=== PATIENT | female | born 1985 | race African-American/Black ===

== ENCOUNTER → 2016-12-31 | Outpatient (CLI) | payer OTHER ==
[2016-08-07 17:48] VITALS: BP 124/69
[2016-12-31 17:16] LABS: BASOPHILS # (AUTO) 0.1 X10^3/uL (0.0-0.1); BASOPHILS % (AUTO) 0.7 % (0.2-1.0); EOSINOPHILS # (AUTO) 0.1 x10^3/uL (0.0-0.2); EOSINOPHILS % (AUTO) 0.7 % (0.9-2.9); HEMATOCRIT 36.2 % (36.0-47.0); HEMOGLOBIN 11.6 g/dL (12.0-16.0); LYMPHOCYTES # (AUTO) 3.4 X10^3/uL (1.3-2.9); MEAN CORPUSCULAR VOLUME 81.3 fL (80.0-100.0); MEAN PLATELET VOLUME 7.6 fL (7.4-11.0); MONOCYTES # (AUTO) 0.7 x10^3/uL (0.3-0.8); MONOCYTES % (AUTO) 5.6 % (0.0-13.0); PLATELET COUNT 423 X10^3/uL (150.0-450.0); RED BLOOD COUNT 4.45 X10^6/uL (3.5-5.4); RED CELL DISTRIBUTION WIDTH 18.2 % (11.6-16.5); WHITE BLOOD COUNT 12.2 X10^3/uL (3.6-10.0)
== END ==
LOC: LAB 16:38
PROVIDERS: ATTEND Internal Medicine Gastroenterology
DX: R11.2 Nausea with vomiting, unspecified (principal)
CPT/HCPCS: 36415; 85025

== ENCOUNTER 2017-02-17 22:18 | Emergency (ER) | payer OTHER ==
[2017-02-17 22:47] VITALS: BP 117/67; BMI 35.2
--- NOTE | 2017-02-17 22:53 | DR.GENAD ---
HPI - PCP Primary Care Physician: ADELSO JOLLY - HPI Comment HPI Comment: PERSISTENT PAIN. TOOK MOTRIN WHICH HELP PAIN. DIFFICULLTY BEARING WEIGHT. - Complaint/Symptoms Chief Complaint Doctors Comments: LEFT FOOT PAIN, DROP CHAIR ON IT THIS AFTERNOON. Chief Complaint:: PT STATES, "I DROPPED A CHAIR ON MY LEFT FOOT." Self Treatment fo Chief Complaint: MOTRIN - Nurses notes reviewed Nurses Notes Review: Yes - Source History Provided: Patient - Mode of Arrival Mode of Arrival: Wheelchair - Timing Onset of Chief Complaint: 02/17/17 Came on: Suddenly - Duration Duration: Constant Duration: Hours - Severity Severity: Moderate PMH - PMH Past Medical History: No Past Medical History: Diabetes Past Surgical History: Yes Surgical History: Appendectomy - Family History History of Family Medical Conditions: Yes Family Medical History: Cancer, Hypertension - Social History Alcohol Use: None Do you use any recreational Drugs:: No Lives With: Alone Lives Where: Home - infectious screening In the last 2 months have you had wt loss of >10#?: NO Have you had fever, night sweats or hemotysis?: No Have you traveled outside the country in the last 6 months?: No Isolation: Standard ROS - Review of Systems Constitutional: No Symptoms Reported Eyes: No Symptoms Reported ENTM: No Symptoms Reported Respiratoy: No Symptoms Reported Cardiovascular: No Symptoms Reported Gastrointestinal/Abdominal: No Symptoms Reported Genitourinary: No Symptoms Reported Neurological: No Symptoms Reported Musculoskeletal: Muscle Pain, Left, Ankle, Foot Integumentary: No Symptoms Reported Hematologic/Lymphatic: No Symptoms Reported Endocrine: No Symptoms Reported All Other Systems: Reviewed and Negative PE - Vital Signs Vitals: Temperature 97.9 F Pulse Rate 66 Respiratory Rate 20 Blood Pressure 117/67 O2 Sat by Pulse Oximetry 100 - General Limitations: No Limitations General Appearance: Alert - Head Head Exam: Normal Inspection - Eyes Eye exam: Normal Appearance - ENT ENT Exam: Normal External Ear Exam External Ear Exam: Normal External Inspection Nose Exam: Normal Nose Exam Mouth Exam: Normal Inspection Throat Exam: Normal Inspection - Neck Neck Exam: Trachea Midline - Chest Chest Inspection: Symmetric Chest Wall Rise - Respiratory Respiratory Exam: Normal Lung Sounds Bilat Respiratory Exam: Bilateral Clear to Auscultation - Cardiovascular Cardiovascular Exam: Regular Rate, Normal Rhythm, Normal Heart Sounds - Abdominal Exam Abdominal Exam: Normal Bowel Sounds, Soft. negative: Tenderness - Extremities Extremities Exam: Tenderness (LEFT FOOT AND ANKLE PAIN AND TENDERNESS.) - Back Back Exam: Normal Inspection - Neurologic Neurological Exam: Alert, Oriented X3 - Psychiatric Psychiatric Exam: Normal Affect, Normal Mood - Skin Skin Exam: Erythema (LT FOOT SLIGHT BRUISING.) MDM - Differential Diagnosis Differential Diagnosis: LT FOOT AND ANKLE SPRAIN, FRACTURE, CONTUSION Course - Treatment Treatment: SEE ORDERS - Education/Counseling Education/Counseling: Patient, Education Educated On: Diagnosis, Needs for Follow Up ROR - XRAY XRAY Findings: REPORT DISCUSS WITH PATIENT. - Diagnosis Discharge Problem: Contusion of left foot Qualifiers: Encounter type: initial encounter Qualified Code(s): S90.32XA - Contusion of left foot, initial encounter - Discharge Plan Disposition: HOME, SELF-CARE Condition: Stable Prescriptions: Ibuprofen [Motrin Tab 800 mg] 800 mg PO BID PRN #20 tab PRN Reason: Pain/Inflammation Tramadol HCl 50 mg PO Q8H PRN #12 tab PRN Reason: Pain - Follow ups/Referrals Follow ups/Referrals: NFD,None [Primary Care Provider] - 2 days ISAIAS CARLOS [STAFF PHYSICIAN] - 2 days - Instructions Instructions: Foot Contusion Additional Instructions: RETURN TO ED IF WORSE.
--- NOTE | 2017-02-17 23:33 | RAD ---
EXAM: Left foot x-ray INDICATION: Pain COMPARISION: None TECHNIQUE: AP, lateral, and oblique, three views FINDINGS: No acute fracture or dislocation. The joint spaces are preserved. The soft tissues are normal. No ra diopaque foreign body. IMPRESSION: Normal left foot x-ray exam Reported By:
[2017-02-17] MEDS ORDERED: ULTRAM PO ONE (23:42)
[2017-02-17] MEDS ORDERED: ULTRAM ONE (23:43)
== END 2017-02-18 00:06 | disposition home or self-care (01) ==
LOC: ER 22:18
DX: S90.32XA Contusion of left foot, initial encounter (principal); X58.XXXA Exposure to other specified factors, initial encounter; Y92.9 Unspecified place or not applicable
CPT/HCPCS: 73630; 99282

== ENCOUNTER 2017-04-15 23:39 | Emergency (ER) | payer OTHER ==
[2017-04-15 23:48] VITALS: BP 104/69; BMI 35.6
[2017-04-16] MEDS ORDERED: TORADOL 60 MG VIAL IM ONE (00:21)
[2017-04-16] MEDS ORDERED: TORADOL 60 MG VIAL ONE (00:23)
--- NOTE | 2017-04-16 00:48 | DR.GENAD ---
HPI - PCP Primary Care Physician: [facility] - HPI Comment HPI Comment: PAIN GETTING WORSE. PENDING CONSULT WITH [employer] C[employer]URIST, FOOT IS SWOLLEN. - Complaint/Symptoms Chief Complaint Doctors Comments: PAIN LEFT FOOT TIMES SEVERAL WEEKS. XRAY IN FEBRUARY WAS NEGATIVE.SORE THROAT TIMES 2 DAYS. FEVER YESTERDAY, Chief Complaint:: LEFT FOOT PAIN, SWELLING FOR SOME TIME, NOTHING IS HELPING. THROAT SORE, COUGHING UP MUCOUS FOR 2 DAYS. Self Treatment fo Chief Complaint: TRAMADOL, COUGH DROPS, THROAT SPRAY - Nurses notes reviewed Nurses Notes Review: Yes - Source History Provided: Patient - Mode of Arrival Mode of Arrival: Ambulatory - Timing Onset of Chief Complaint: 04/12/17 Came on: Suddenly, Gradually - Duration Duration: Constant Duration: Days PMH - PMH Past Medical History: Yes Past Medical History: Diabetes Past Surgical History: Yes Surgical History: Appendectomy - Family History History of Family Medical Conditions: Yes Family Medical History: Cancer, Hypertension - Social History Does patient currently use any type of tobacco product: No Have you used tobacco products in the last 12 months: No Type of Tobacco Use: None Alcohol Use: None Do you use any recreational Drugs:: No Lives With: Family Lives Where: Home - infectious screening Have you traveled outside the country in the last 6 months?: No Isolation: Standard ROS - Review of Systems Constitutional: No Symptoms Reported Eyes: No Symptoms Reported ENTM: Throat Pain. negative: Ear Pain, Nose Discharge, Nose Congestion Respiratoy: No Symptoms Reported Cardiovascular: No Symptoms Reported Gastrointestinal/Abdominal: No Symptoms Reported Genitourinary: No Symptoms Reported Neurological: No Symptoms Reported Musculoskeletal: Left, Foot Integumentary: No Symptoms Reported Hematologic/Lymphatic: No Symptoms Reported Endocrine: No Symptoms Reported All Other Systems: Reviewed and Negative PE - Vital Signs Vitals: Temperature 98.1 F Pulse Rate 70 Respiratory Rate 16 Blood Pressure 104/69 O2 Sat by Pulse Oximetry 99 - General Limitations: No Limitations General Appearance: Alert - Head Head Exam: Normal Inspection - Eyes Eye exam: Normal Appearance - ENT ENT Exam: Normal External Ear Exam External Ear Exam: Normal External Inspection TM/Canal Exam: Bilateral Normal Nose Exam: Normal Nose Exam Mouth Exam: Normal Inspection Throat Exam: Tonsillar Erythema. negative: Tonsillomegaly, Tonsillar Exudate - Neck Neck Exam: Trachea Midline. negative: Tenderness, Meningismus, Lymphadenopathy - Chest Chest Inspection: Symmetric Chest Wall Rise - Respiratory Respiratory Exam: Normal Lung Sounds Bilat Respiratory Exam: Bilateral Clear to Auscultation - Cardiovascular Cardiovascular Exam: Regular Rate, Normal Rhythm, Normal Heart Sounds - Abdominal Exam Abdominal Exam: Normal Bowel Sounds, Soft. negative: Tenderness - Extremities Extremities Exam: Tenderness (SWELLING AND TENDERNESS LEFT FOOT.) - Back Back Exam: Normal Inspection - Neurologic Neurological Exam: Alert, Oriented X3 - Psychiatric Psychiatric Exam: Normal Affect, Normal Mood - Skin Skin Exam: Normal Color [facility] - Additional Information Additional Information Obtained From: Family - Differential Diagnosis Differential Diagnosis: LEFT FOOT PAIN, STREP THROAT/PHARYNGITIS Course - Treatment Treatment: SEE ORDERS. - Reevaluation 1st: Improved - Education/Counseling Education/Counseling: Patient, Education Educated On: Treatment, Diagnosis, Needs for Follow Up ROR - Labs Reviewed Laboratory Results Reviewed?: Yes Laboratory: Streptococcus Screen Negative (NEGATIVE) 04/16/17 00:19 - Diagnosis Discharge Problem: Foot pain, Sore throat - Discharge Plan Condition: Stable Prescriptions: Amoxicillin [Amoxil 875 mg] 875 mg PO TID #30 tab Ibuprofen [Motrin Tab 800 mg] 800 mg PO BID PRN #20 tab PRN Reason: Pain/Inflammation - Follow ups/Referrals Follow ups/Referrals: NFD,None [Primary Care Provider] - 3 days ISAIAS CARLOS [STAFF PHYSICIAN] - 3 days - Instructions Instructions: Sore Throat, [id number], Tendinitis, [id number] Additional Instructions: RETURN TO ED IF WORSE.
== END 2017-04-16 01:00 | disposition home or self-care (01) ==
LOC: ER 23:53
DX: J02.9 Acute pharyngitis, unspecified (principal); M79.672 Pain in left foot
CPT/HCPCS: 87070; 87880; 96372; 99282; J1885

== ENCOUNTER → 2017-07-11 | Outpatient (CLI) | payer OTHER ==
[2017-07-15 06:43] LABS: HCV VIRAL LOG <1.2 log IU
== END ==
LOC: LAB 09:06
PROVIDERS: ATTEND Internal Medicine Gastroenterology
DX: R76.8 Other specified abnormal immunological findings in serum (principal)
CPT/HCPCS: 36415; 87522; 87902

== ENCOUNTER 2017-07-17 06:53 | Emergency (ER) | payer OTHER ==
[2017-07-17 07:01] VITALS: BP 122/69; BMI 36.0
[2017-07-17] MEDS ORDERED: TORADOL 60 MG VIAL ONE (07:17)
[2017-07-17] MEDS ORDERED: TORADOL 60 MG VIAL IM ONE (07:17)
--- NOTE | 2017-07-17 07:17 | DR.GENAD ---
HPI - PCP Primary Care Physician: nfd - Complaint/Symptoms Chief Complaint Doctors Comments: Patient states that she was dismantling a trampoline on yesterday and some how injured her right shoulder. This morning admits to right shoulder pain. Pain is moderate, sharp, worse with abduction and internal rotation. Chief Complaint:: pt states" i must have pulled a muscle in my rt arm and shoulder yesterday at work cause i can barely lift it today" - Source History Provided: Patient - Mode of Arrival Mode of Arrival: Ambulatory - Timing Onset of Chief Complaint: 07/16/17 PMH - PMH Past Medical History: No Past Medical History: Diabetes Past Surgical History: Yes Surgical History: Appendectomy - Family History History of Family Medical Conditions: Yes Family Medical History: Cancer, Hypertension - Social History Alcohol Use: None Do you use any recreational Drugs:: No Lives With: Family Lives Where: Home - infectious screening In the last 2 months have you had wt loss of >10#?: NO Have you had fever, night sweats or hemotysis?: No Have you traveled outside the country in the last 6 months?: No Isolation: Standard ROS - Review of Systems Eyes: No Symptoms Reported ENTM: No Symptoms Reported Respiratoy: No Symptoms Reported Cardiovascular: No Symptoms Reported Gastrointestinal/Abdominal: No Symptoms Reported Genitourinary: No Symptoms Reported Neurological: Other (right shoulder pain) Musculoskeletal: No Symptoms Reported Integumentary: No Symptoms Reported Hematologic/Lymphatic: No Symptoms Reported Endocrine: No Symptoms Reported Psychiatric: No Symptoms Reported All Other Systems: Reviewed and Negative PE - Vital Signs Vitals: Temperature 986 F Pulse Rate 82 Respiratory Rate 18 Blood Pressure 122/69 O2 Sat by Pulse Oximetry 100 - General Limitations: No Limitations General Appearance: Alert - Head Head Exam: Normal Inspection - Eyes Eye exam: Normal Appearance, EOMI - ENT ENT Exam: Normal Exam External Ear Exam: Normal External Inspection TM/Canal Exam: Bilateral Normal Nose Exam: Normal Nose Exam Mouth Exam: Normal Inspection Throat Exam: Normal Inspection - Neck Neck Exam: Normal Inspection - Chest Chest Inspection: Normal Inspection - Respiratory Respiratory Exam: Normal Lung Sounds Bilat Respiratory Exam: Bilateral Clear to Auscultation - Cardiovascular Cardiovascular Exam: Regular Rate - Abdominal Exam Abdominal Exam: Normal Inspection Abdominal Tenderness: negative: RUQ, RLQ, LUQ, LLQ, Epigastrium, Suprapubic, Diffuse, Mild, Moderate, Severe, Other - Extremities Extremities Exam: Other (decreased ROM to internal rotation,abduction against resistance) - Back Back Exam: Normal Inspection - Neurologic Neurological Exam: Alert, Oriented X3, CN II-XII Intact - Psychiatric Psychiatric Exam: Normal Affect - Skin Skin Exam: Warm, Dry, Intact - Diagnosis Discharge Problem: Sprain of shoulder, right Qualifiers: Encounter type: initial encounter Shoulder sprain type: unspecified sprain Qualified Code(s): S43.401A - Unspecified sprain of right shoulder joint, initial encounter - Discharge Plan Condition: Stable - Follow ups/Referrals Follow ups/Referrals: NFD,None [Primary Care Provider] - 3 days - Instructions
== END 2017-07-17 07:35 | disposition home or self-care (01) ==
LOC: ER 06:53
DX: S43.401A Unspecified sprain of right shoulder joint, initial encounter (principal); Y33.XXXA Other specified events, undetermined intent, initial encounter; Y92.9 Unspecified place or not applicable
CPT/HCPCS: 96372; 99282; J1885

== ENCOUNTER → 2017-07-22 | Outpatient (CLI) | payer OTHER ==
--- NOTE | 2017-07-22 10:31 | US ---
History: Hepatitis C Study: Ultrasound of the liver and right upper quadrant of the abdomen Comparison: None Findings: The liver is normal in size without mass with normal echogenicity. There is appropriate rusty w in the hepatic and portal veins. The gallbladder is normal in size without wall thickening or stone or sludge. The common hepatic duct measures 4.2 mm diameter. The right kidney measures 10 x 5.4 x 5.5 cm without mass or hydronephrosis. The visualized pancreas is unremarkable. There is no free fluid. Impression: Negative Reported By:
== END ==
LOC: RAD 09:00
PROVIDERS: ATTEND Internal Medicine Gastroenterology
DX: R76.8 Other specified abnormal immunological findings in serum (principal)
CPT/HCPCS: 76705

== ENCOUNTER 2017-09-04 13:30 | Emergency (ER) | payer OTHER ==
[2017-09-04 13:44] VITALS: BP 137/73; BMI 35.0
[2017-09-04] MEDS ORDERED: DECADRON INJ IM ONE (15:05)
--- NOTE | 2017-09-04 15:05 | DR.GENAD ---
HPI - PCP Primary Care Physician: TALYA SINGH - Complaint/Symptoms Chief Complaint:: PT C/O HER LEFT FOOT BOTHERING HER AND SHE DENIES ANY INJURY PT C/O SWELLING.. SWELLING NOTED .. SMALL BRUISE NOTED TO LATERAL LEFT FOOT". Self Treatment fo Chief Complaint: NEURONTIN, PREDNISONE. ,, PT GIVEN LASIX AND REFERRED TO FOOT MD AND SHE CANT BE SEEN TILL JANRUARY PT STATES SHE CANT HANDLE THE PAIN ANY MORE . - Source History Provided: Patient - Mode of Arrival Mode of Arrival: Ambulatory - Timing Onset of Chief Complaint: 09/01/17 PMH - PMH Past Medical History: No Past Medical History: Diabetes Past Surgical History: Yes Surgical History: Appendectomy Past Surgical History Comment: CYST FROM WRISTS .. - Family History History of Family Medical Conditions: Yes Family Medical History: Cancer, Hypertension - Social History Does patient currently use any type of tobacco product: No Have you used tobacco products in the last 12 months: No Type of Tobacco Use: None Does any household member use tobacco: No Alcohol Use: None Do you use any recreational Drugs:: No Lives With: Family Lives Where: Home - infectious screening In the last 2 months have you had wt loss of >10#?: NO Have you had fever, night sweats or hemotysis?: No Have you traveled outside the country in the last 6 months?: No Isolation: Standard ROS - Review of Systems Constitutional: No Symptoms Reported Eyes: No Symptoms Reported ENTM: No Symptoms Reported Respiratoy: No Symptoms Reported Cardiovascular: No Symptoms Reported Gastrointestinal/Abdominal: No Symptoms Reported Genitourinary: No Symptoms Reported Neurological: No Symptoms Reported Musculoskeletal: Foot (chronic left foot pain) Integumentary: No Symptoms Reported Hematologic/Lymphatic: No Symptoms Reported Endocrine: No Symptoms Reported Psychiatric: No Symptoms Reported All Other Systems: Reviewed and Negative PE - Vital Signs Vitals: Temperature 98.2 F Pulse Rate 80 Respiratory Rate 20 Blood Pressure 137/73 O2 Sat by Pulse Oximetry 95 - General Limitations: No Limitations General Appearance: Alert, In No Apparent Distress - Head Head Exam: Normal Inspection, Atraumatic - Eyes Eye exam: Normal Appearance, PERRL, EOMI - ENT ENT Exam: Normal Exam External Ear Exam: Normal External Inspection TM/Canal Exam: Bilateral Normal Nose Exam: Normal Nose Exam Mouth Exam: Normal Inspection Throat Exam: Normal Inspection - Neck Neck Exam: Normal Inspection - Chest Chest Inspection: Normal Inspection - Respiratory Respiratory Exam: Normal Lung Sounds Bilat Respiratory Exam: Bilateral Clear to Auscultation - Cardiovascular Cardiovascular Exam: Regular Rate - Abdominal Exam Abdominal Exam: Normal Inspection Abdominal Tenderness: negative: RUQ, RLQ, LUQ, LLQ, Epigastrium, Suprapubic, Diffuse, Mild, Moderate, Severe, Other - Extremities Extremities Exam: Normal Inspection, Full ROM, Other (left foot pain) - Back Back Exam: Normal Inspection, Full ROM - Neurologic Neurological Exam: Alert, Oriented X3, CN II-XII Intact - Psychiatric Psychiatric Exam: Normal Affect - Skin Skin Exam: Warm, Dry, Intact - Diagnosis Discharge Problem: Pain, foot, left, chronic - Discharge Plan Condition: Stable - Follow ups/Referrals Follow ups/Referrals: NFD,None [Primary Care Provider] - 3 days - Instructions
[2017-09-04] MEDS ORDERED: DECADRON INJ ONE (15:10)
== END 2017-09-04 15:37 | disposition home or self-care (01) ==
LOC: ER 13:41
DX: M79.672 Pain in left foot (principal)
CPT/HCPCS: 96372; 99282; J1100

== ENCOUNTER 2017-11-12 14:59 | Emergency (ER) | payer OTHER ==
[2017-11-12 15:03] VITALS: BP 181/109; BMI 37.5
[2017-11-12] MEDS ORDERED: ADACEL TDaP IM ONE ×2 (15:23→15:27)
--- NOTE | 2017-11-12 15:52 | DR.LACERAT ---
HPI - Time Seen Time seen: 15:30 - Primary Care Physician Primary Care Physician: ADELSO SINGH - HPI Comment HPI Comment: BROOM HANDLE BROKE WHILE USING IT AND CUT LT MIDDLE FINGER. 2CM LAC PRESENT. - Complaints Chief Complaint Doctors Comments: LACERATION LEFT MIDDLE FINGER. Chief Complaint:: PT C/O CUTTING HER LEFT HAND ON A IRON BROOM,, PT HAS LACERATION TO HER LEFT MIDDLE FINGER ABOUT 2 CM WITH TISSUE HANGING OUT,, - Reviewed Nurses Notes Reviewed: Yes - Source History Provided: Patient - Mode of Arrival Mode of Arrival: Ambulatory - Timing Onset of Chief Complaint: 11/12/17 - Context Mechanism: Metal Tetanus Vaccination: No - Severity Pain Severity: Moderate Bleeding:: Controlled - Associated Signs and Symptoms Associated Signs and Symptoms: None PMH - PMH Past Medical History: Yes Past Medical History: Diabetes Past Surgical History: Yes Surgical History: Appendectomy Past Surgical History Comment: GANGLION CYST, RIGHT HAND SURGERY , - Family History History of Family Medical Conditions: Yes Family Medical History: Cancer, Hypertension - Social History Does patient currently use any type of tobacco product: No Have you used tobacco products in the last 12 months: No Type of Tobacco Use: None Does any household member use tobacco: No Alcohol Use: None Do you use any recreational Drugs:: No Lives With: Family Lives Where: Home - infectious screening In the last 2 months have you had wt loss of >10#?: NO Have you had fever, night sweats or hemotysis?: No Have you traveled outside the country in the last 6 months?: No Isolation: Standard ROS - Review of Systems Constitutional: No Symptoms Reported Eyes: No Symptoms Reported ENTM: No Symptoms Reported Respiratoy: No Symptoms Reported Cardiovascular: No Symptoms Reported Gastrointestinal/Abdominal: No Symptoms Reported Genitourinary: No Symptoms Reported Neurological: No Symptoms Reported Musculoskeletal: Left, Hand Integumentary: Other (2CM LAC LEFT MIDDLE FINGER.) Hematologic/Lymphatic: No Symptoms Reported Endocrine: No Symptoms Reported All Other Systems: Reviewed and Negative PE - Vital Signs Vitals: Temperature 98.2 F Pulse Rate 77 Respiratory Rate 20 Blood Pressure 181/109 O2 Sat by Pulse Oximetry 99 - General Limitations: No Limitations General Appearance: Alert - Head Head Exam: Normal Inspection - Eyes Eye exam: Normal Appearance - ENT ENT Exam: Normal External Ear Exam - Neck Neck Exam: Normal Inspection - Chest Chest Inspection: Symmetric Chest Wall Rise - Respiratory Respiratory Exam: Normal Lung Sounds Bilat Respiratory Exam: Bilateral Clear to Auscultation - Cardiovascular Cardiovascular Exam: Regular Rate, Normal Rhythm, Normal Heart Sounds - Abdominal Exam Abdominal Exam: Normal Bowel Sounds, Soft. negative: Tenderness - Extremities Extremities Exam: Tenderness (2CM LAC LT MIDDLE FINGER.) - Back Back Exam: Normal Inspection - Neurologic Neurological Exam: Alert, Oriented X3 - Psychiatric Psychiatric Exam: Normal Affect, Normal Mood - Skin Skin Exam: Erythema, Other (2CM LAC IN LT MIDDLE FINGER.) MDM - Differential Diagnosis Differential Diagnosis: Laceration Course - Treatment Treatment: SEE ORDERS. - Education/Counseling Education/Counseling: Patient, Education Educated On: Diagnosis, Needs for Follow Up Procedures - Laceration/Wound Repair Left Finger Wound Length (cm): 2 Wound's Depth, Shape: Linear Wound Explored: clean Betadine Prep?: Yes Anesthesia: 1% Lidocaine Volume Anesthetic (ccs): 2 Wound Debrided: minimal Wound Repaired With: sutures Suture Size/Type: 5:0, Ethilion Number of Sutures: 4 Layer Closure?: No Sterile Dressing Applied?: Yes Splint Applied?: No Sling Applied?: No - Diagnosis Discharge Problem: Laceration Laceration of left middle finger Qualifiers: Encounter type: initial encounter Damage to nail status: without damage Foreign body presence: without foreign body Qualified Code(s): S61.213A - Laceration without foreign body of left middle finger without damage to nail, initial encounter - Discharge Plan Disposition: 01 HOME, SELF-CARE Condition: Stable Prescriptions: Cephalexin [KEFLEX CAP 500 MG *] 500 mg PO TID #21 cap Ibuprofen [MOTRIN TAB 800 MG *] 800 mg PO Q8H PRN #20 tab PRN Reason: Pain/Inflammation - Follow ups/Referrals Follow ups/Referrals: DONNY DARDEN [Primary Care Provider] - 3 days - Instructions Instructions: Laceration Care, Adult, [id number] Additional Instructions: RETURN TO ED IF WORSE. SUTURE OUT IN 10 DAYS.
[2017-11-12] MEDS ORDERED: NEOSPORIN OINT TOP ONE (16:02)
[2017-11-12] MEDS ORDERED: BACITRACIN ZINC ONE (16:09)
== END 2017-11-12 16:17 | disposition home or self-care (01) ==
LOC: ER 15:08
PROC: 0XQRXZZ Repair Left Middle Finger, External Approach (ICD-10-PCS; principal; 2017-11-12)
DX: S61.213A Laceration without foreign body of left middle finger without damage to nail, initial encounter (principal); W45.8XXA Other foreign body or object entering through skin, initial encounter; Y92.9 Unspecified place or not applicable
CPT/HCPCS: 90471; 99282

== ENCOUNTER → 2017-11-20 | Outpatient (CLI) | payer OTHER ==
[2017-11-12 15:03] VITALS: BP 181/109
[2017-11-20 08:46] LABS: BASOPHILS # (AUTO) 0.1 X10^3/uL (0.0-0.1); EOSINOPHILS # (AUTO) 0.1 x10^3/uL (0.0-0.2); EOSINOPHILS % (AUTO) 1.7 % (0.9-2.9); HEMATOCRIT 31.8 % (36.0-47.0); HEMOGLOBIN 10.1 g/dL (12.0-16.0); LYMPHOCYTES # (AUTO) 2.8 X10^3/uL (1.3-2.9); LYMPHOCYTES % (AUTO) 35.5 % (21.0-51.0); MEAN CORPUSCULAR HEMOGLOBIN 24.6 pg (27.0-34.0); MEAN CORPUSCULAR HGB CONC 31.7 g/dL (33.0-35.0); MEAN CORPUSCULAR VOLUME 77.5 fL (80.0-100.0); MEAN PLATELET VOLUME 7.5 fL (7.4-11.0); MONOCYTES # (AUTO) 0.7 x10^3/uL (0.3-0.8); MONOCYTES % (AUTO) 9.1 % (0.0-13.0); NEUTROPHILS # (AUTO) 4.1 x10^3/uL (2.2-4.8); NEUTROPHILS % (AUTO) 52.7 % (42.0-75.0); PLATELET COUNT 534 X10^3/uL (150.0-450.0); RED BLOOD COUNT 4.11 X10^6/uL (3.5-5.4); WHITE BLOOD COUNT 7.9 X10^3/uL (3.6-10.0)
[2017-11-20 08:55] LABS: ALANINE AMINOTRANSFERASE 24 Units/L (12-78); ALBUMIN 3.1 g/dL (3.4-5.0); ALKALINE PHOSPHATASE 149 Units/L (46-116); ASPARTATE AMINO TRANSFERASE 20 Units/L (15-37); BLOOD UREA NITROGEN 12 mg/dL (7-18); CALCIUM 8.5 mg/dL (8.5-10.1); CARBON DIOXIDE 28.5 mmol/L (21-32); CHLORIDE 105 mmol/L (98-107); COR CA(FOR HYPOALB) 9.2 mg/dL (8.5-10.1); CREATININE 0.95 mg/dL (0.55-1.02); SODIUM 140 mmol/L (136-145); TOTAL PROTEIN 7.9 g/dL (6.4-8.2); eGFR BLACK RACES > 60 (>60); eGFR NON BLACK RACES > 60 (>60)
[2017-11-20 09:48] LABS: PLATELET MORPHOLOGY COMMENT NORMAL (NORMAL)
[2017-11-22 13:32] LABS: HCV VIRAL LOG <1.2 log IU
== END ==
LOC: LAB 11-19 15:24
PROVIDERS: ATTEND Internal Medicine Gastroenterology
DX: B18.2 Chronic viral hepatitis C (principal)
CPT/HCPCS: 36415; 80053; 81599; 85025; 87522; 87902

== ENCOUNTER 2017-11-30 22:55 | Emergency (ER) | payer OTHER ==
[2017-11-30 23:01] VITALS: BP 125/58; BMI 36.0
--- NOTE | 2017-11-30 23:38 | DR.GENAD ---
HPI - PCP Primary Care Physician: DIEGO - Complaint/Symptoms Chief Complaint Doctors Comments: Sore throat x 3 days. NO fever or chills associated. Secondly, she has sutures that were placed over a laceration on the 3rd finger, lt. hand on 11/12/17 that she would like to have taken out. She states that she was instructed to have this on by day 13. Chief Complaint:: THROAT ACHING, LEFT HURTS AND STITCHES IN LEFT FINGER NEEDS REMOVIN - Source History Provided: Patient - Mode of Arrival Mode of Arrival: Ambulatory - Timing Onset of Chief Complaint: 11/25/17 PMH - PMH Past Medical History: No Past Medical History: Diabetes Past Surgical History: Yes Surgical History: Appendectomy, Ortho Surgery - Family History History of Family Medical Conditions: Yes Family Medical History: Hypertension - Social History Does any household member use tobacco: No Alcohol Use: Rarely Do you use any recreational Drugs:: No Lives With: Alone Lives Where: Home - infectious screening In the last 2 months have you had wt loss of >10#?: NO Have you had fever, night sweats or hemotysis?: No Have you traveled outside the country in the last 6 months?: No Isolation: Standard ROS - Review of Systems Constitutional: No Symptoms Reported Eyes: No Symptoms Reported ENTM: Throat Pain Respiratoy: No Symptoms Reported Cardiovascular: No Symptoms Reported Gastrointestinal/Abdominal: No Symptoms Reported Genitourinary: No Symptoms Reported Neurological: No Symptoms Reported Musculoskeletal: No Symptoms Reported Integumentary: No Symptoms Reported Hematologic/Lymphatic: No Symptoms Reported Endocrine: No Symptoms Reported Psychiatric: No Symptoms Reported All Other Systems: Reviewed and Negative PE - Vital Signs Vitals: Temperature 98.5 F Pulse Rate 79 Respiratory Rate 22 Blood Pressure 125/58 O2 Sat by Pulse Oximetry 100 - General Limitations: No Limitations General Appearance: Alert, In No Apparent Distress - Head Head Exam: Normal Inspection - Eyes Eye exam: Normal Appearance - ENT ENT Exam: Normal Exam - Neck Neck Exam: Normal Inspection - Chest Chest Inspection: Normal Inspection - Respiratory Respiratory Exam: Normal Lung Sounds Bilat - Cardiovascular Cardiovascular Exam: Regular Rate, Normal Rhythm, +S1, +S2 - Abdominal Exam Abdominal Exam: Normal Inspection, Normal Bowel Sounds, Soft - Extremities Extremities Exam: Normal Inspection - Back Back Exam: Normal Inspection - Neurologic Neurological Exam: Alert, Oriented X3 - Psychiatric Psychiatric Exam: Normal Affect, Normal Mood - Skin Skin Exam: Warm, Dry, Intact, Other (there are 2 interrupted sutures (Ethilon 5.0) over a healed, well approximated incision on her left 3rd finger. ) ROR - Labs Reviewed Laboratory: S. pyogenes (TEM-PCR) Not detected (NOT DETECT) 12/01/17 00:10 Procedures - Procedure Comments Procedures: Suture removal was done sucessfully and tolerably on the left 3rd finger. - Diagnosis Discharge Problem: Sore throat - Discharge Plan Disposition: 01 HOME, SELF-CARE Condition: Stable - Follow ups/Referrals Follow ups/Referrals: NFD,None [Primary Care Provider] - 3 days - Instructions Instructions: Sore Throat, [id number]
[2017-12-01] MEDS ORDERED: XYLOCAINE VISCOUS ONE (00:58)
[2017-12-01] MEDS ORDERED: XYLOCAINE VISCOUS MT ONE (01:00)
== END 2017-12-01 01:22 | disposition home or self-care (01) ==
LOC: ER 22:55
DX: J02.9 Acute pharyngitis, unspecified (principal); Z48.02 Encounter for removal of sutures
CPT/HCPCS: 87651; 99282; 99283